=== PATIENT | female | born 1930 | race Caucasian/White ===

== ENCOUNTER → 2016-03-09 | Outpatient (REF) | payer OTHER ==
[~2016-03-09] MED LIST: /PRAV20TA; ALBU83IN INH; ASPI81TA85 PO; AYR0.65D; B COTAB3 PO; CINA30TA PO; COLA100C PO; COMP1PAK PO; FOLI1TAB2 PO; GUAI100S7 PO; LEVO100T5 PO; LEVO50TA2; LOPR50TA; NITR0.4S; OYSCTAB PO; REGL5TAB2 PO; RENV2TAB PO; SIMV20TA2 PO; TRAM50TA2 PO; VITA200016 PO
== END ==
LOC: M LAB REF 16:44
PROVIDERS: ATTEND Internal Medicine Medical Oncology
DX: E83.119 Hemochromatosis, unspecified (principal)

== ENCOUNTER 2016-04-14 18:11 | Observation (INO) | payer OTHER ==
[2016-04-14] MEDS ORDERED: MORPHINE 2 MG/ML 1ML SYRINGE As Ordered ONE (18:56)
[2016-04-14] MEDS ORDERED: ONDANSETRON 4MG/2ML VIAL (J2405) As Ordered ONE (18:57)
[2016-04-14 19:21] LABS: BASO # 0.1 K/mm3 (0.0-0.2); BASO % 1.1 % (0.0-1.0); EOS # 0.1 K/mm3 (0.0-0.50); EOS % 2.1 % (0.0-3.0); LARGE UNSTAINED CELL # 0.1 K/mm3 (0.0-0.4); LARGE UNSTAINED CELL % 1.8 % (0.0-4.0); LYMPH # 1.6 K/mm3 (1.5-4.5); LYMPH % 27.8 % (24.0-44.0); MEAN CORPUSCULAR HEMOGLOBIN 31.7 pg (27.0-33.0); MEAN CORPUSCULAR HGB CONC 33.9 g/dl (32.0-36.5); MEAN CORPUSCULAR VOLUME 93.5 fl (80.0-96.0); MONO # 0.5 K/mm3 (0.0-0.8); MONO % 9.3 % (0.0-5.0); NEUTROPHILS # 3.2 K/mm3 (1.8-7.7); PLATELET COUNT, AUTOMATED 240 k/mm3 (150-450); RED CELL DISTRIBUTION WIDTH 12.7 % (11.5-14.5); WHITE BLOOD COUNT 5.6 K/mm3 (4.0-10.0)
[2016-04-14 19:50] LABS: ALBUMIN/GLOBULIN RATIO 1.33 (1.00-1.93); ALKALINE PHOSPHATASE 106 U/L (45-117); ALT/SGPT 22 U/L (12-78); AMYLASE 44 U/L (25-115); ANION GAP 10 MEQ/L (8-16); AST/SGOT 19 U/L (15-37); BILIRUBIN,DIRECT 0.1 MG/DL (0.0-0.2); BILIRUBIN,TOTAL 0.5 MG/DL (0.2-1.0); BLOOD UREA NITROGEN 19 MG/DL (7-18); CALCIUM LEVEL 9.3 MG/DL (8.8-10.2); CARBON DIOXIDE LEVEL 24 MEQ/L (21-32); CHLORIDE LEVEL 109 MEQ/L (98-107); CREATININE FOR GFR 0.87 MG/DL (0.55-1.02); GLOMERULAR FILTRATION RATE > 60.0 (>32); GLUCOSE, FASTING 94 MG/DL (83-110); POTASSIUM SERUM 4.1 MEQ/L (3.5-5.1); SODIUM LEVEL 143 MEQ/L (136-145)
[2016-04-14] MEDS ORDERED: ISOVUE-370 76% 100ML VIAL (Q9967) As Ordered ONE (20:46)
--- NOTE | 2016-04-14 21:20 | REPUSA ---
CT of the abdomen and pelvis with contrast Clinical statement: Pain. Technique: Multiple axial CT images were obtained from the base of the lungs through the floor of the pelvis utilizing 5 mm axial slices after administration of nonionic intravenous contrast. Coronal an d sagittal reconstructions were also obtained. No comparison is available. Findings: Chest: The visualized lung bases are clear. There is a small hiatal hernia. Abdomen: The liver, pancreas, kidneys, gallbladder, and adrenal glands are unremarkable. The common b ile duct is dilated measuring up to 9 mm. The pancreatic duct is also dilated. No obstructing lesion or mass is identified however. There is a solid enhancing mass in the anterior aspect of the spleen, measuring 4.4 x 4.8 cm. The aorta is within normal limits, other than mild atherosclerotic calcificat ions. There is no evidence of abdominal lymphadenopathy or ascites. Pelvis: The bowel is unremarkable, with no obstructive or inflammatory changes. The urinary bladder i s within normal limits. The other pelvic structures appear grossly intact. There is no evidence of pe lvic lymphadenopathy or ascites. Bones: There are no suspicious osseous abnormalities seen. Severe multilevel degenerative disc diseas e is noted throughout the lumbar spine with disc osteophyte complexes and disc bulges. No acute fract ures identified. Mild osteoarthritis of the hip joints is noted. Impression: 1. Significant extrahepatic biliary ductal dilatation of the common bile duct and pancreatic duct. No distal obstructing stone or mass is identified on this study. If there is further clinical concern, MRCP or ERCP could prove helpful. 2. No obstructive or inflammatory bowel changes. 3. Small hiatal hernia. 4. 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 Follow-up is suggested as clinically indicated. 5. Severe spondylosis of the lumbar spine.
[2016-04-14] MEDS ORDERED: ACETAMINOPHEN TAB 650MG DOSE (2X325MG) PO PRN (23:00)
[2016-04-14] MEDS ORDERED: MORPHINE 2 MG/ML 1ML SYRINGE IV PRN (23:00)
[2016-04-14] MEDS ORDERED: PERCOCET 5MG/325MG TAB PO PRN (23:00)
[2016-04-14] MEDS ORDERED: VITA1CAP6 PO (23:04)
[2016-04-14] MEDS ORDERED: FISH1000 PO (23:04)
[2016-04-14] MEDS ORDERED: LISI10TA4 PO (23:04)
[2016-04-14] MEDS ORDERED: ATOR1TAB21 PO (23:04)
[2016-04-14] MEDS ORDERED: DOCUSATE SODIUM 100 MG CAP PO PRN (23:15)
--- NOTE | 2016-04-15 00:01 | HPEPDOC ---
Medical History and Physical Date of Admission Apr 14, 2016 at 22:06 History and Physical PRIMARY CARE PROVIDER: Dr. Florence CHIEF COMPLAINT: Ribs/right upper quadrant pain HISTORY OF PRESENT ILLNESS: Patient is a 85-year-old female with past medical history significant for hypertension, heart attack, hemachromatosis who presents with right-sided rib pain and right upper quadrant pain. Patient says that her pain started last night. Pain is located in her right posterior ribs with radiation to her right upper quadrant, she is also getting pain radiating down her right leg when walking. Patient rates pain 0 out of 10 when she is at rest and not moving and 10 out of 10 at its worst, staying that it "hurts like almighty God." Pain is elicited by any sort of movement, deep breathing or coughing. She denies any nausea, vomiting, fevers, chills, and sweats or weight changes ALLERGIES: None PAST MEDICAL HISTORY: Hypertension, myocardial infarction in 2011, 2012, 2013, hemochromatosis, subdural hematoma in 2012 PAST SURGICAL HISTORY: Hysterectomy, bilateral carpal tunnel repair, back surgery, coronary stent SOCIAL HISTORY: Patient denies any tobacco, alcohol or recreational drug use. Patient lives alone CODE STATUS: Patient does not currently have any advanced directives but is asking to be made DNR REVIEW OF SYSTEMS: Constitutional: denies fevers, chills, night sweats, recent weight gain/loss HEENT: Head: denies headaches, dizziness, light-headedness. Eyes: Positive for chronic macular degeneration and right eye. Ears: Positive for chronic hearing loss. Nose: denies sinus pain, pressure, rhinorrhea, postnasal drip. Throat: denies sore throat, cough, difficulty swallowing Cardiovascular: denies chest discomfort/pain, palpitations Respiratory: Positive for pain with deep breathing, denies shortness of breath, difficulty breathing Gastrointestinal: Positive for abdominal a as described in HPI, positive for GERD, chronic constipation. Denies any nausea, vomiting, bright red or dark tarry bowel movements : Positive for chronic urinary incontinence, denies dysuria, hematuria Musculoskeletal: Positive for diffuse musculoskeletal pain secondary to arthritis Neurological: denies numbness, tingling, paresthesias Lymphatics: denies palpable lymph nodes or swollen glands Integumentary: denies any cuts, rashes, bruises Endocrine: Positive for polyuria, polydipsia PHYSICAL EXAMINATION: Vitals: Temperature 97.9, pulse 87, respiratory rate 18, blood pressure 174/79, pulse ox 97% on room air General: Patient awake, alert and oriented, verbal and able to answer questions appropriately. She does not appear to be in any acute distress HEENT: Head: normocephalic, atraumatic. Eyes: pupils equally reactive to light , conjunctiva are pink, sclera are nonicteric. Throat: buccal mucosa is pink and moist with no lesions in the oropharynx Respiratory: clear to auscultation bilaterally with no wheezes, rales, or rhonchi. Cardiovascular: regular rate and rhythm, with no murmurs, rubs or gallops. Abdomen: Active bowel sounds, soft, positive for tenderness in right upper quadrant, right mid lateral abdomen with no rebound tenderness. No masses to palpation Extremities: 5/5 strength in upper and lower extremities bilaterally, no swelling in either lower extremity bilaterally Neurological: sensation intact and symmetrical in upper and lower extremities bilaterally Lymphatics: no palpable lymph nodes, swollen glands Integumentary: skin free from rashes, lesions, abrasions Vascular: pulses palpable and symmetrical in upper and lower extremities bilaterally LABORATORY DATA: CBC: White blood cells 5.6, H&H 15.6/46.1, platelets 240 Chemistry: Sodium 143, potassium 4.1, chloride 109, carbon dioxide 24, BUN 19, creatinine 0.87, glucose 94, calcium 9.3 Liver profile: AST 19, ALT 22, alkaline phosphatase 106, total protein 7.0, albumin 4.0, total bilirubin 0.5, direct bilirubin 0.1 Amylase 44, lipase 262 Urine analysis: Straw color, appearance clear, pH 6.0, specific gravity 1.004, 0.2 urobilinogen, 4 white blood cells, 3 red blood cells. Negative for all of the following: Protein, glucose, ketones, blood, nitrites, bilirubin, leukocyte esterase, hyalin casts, squamous epithelial cells MICROBOIOLOGY: Urine culture pending RADIOLOGY: Extrahepatic biliary ductal dilation of common bile duct and pancreatic duct. No obstructing stone or mass identified. No obstructive or inflammatory bowel changes. Small hiatal hernia. Small enhancing mass in anterior aspect of spleen. Severe spondylosis of lumbar spine ASSESSMENT: Patient is a 85-year-old female who presents with likely biliary colic. She will require admission for further evaluation and treatment PLAN: #1: Biliary colic: Admit patient to [facility] under care of Dr. Grijalva. Patient will be further evaluated with MRCP, order placed for nothing by mouth after midnight. Orders placed for daily CBC, CMP. Orders placed for Tylenol 650 mg by mouth every 4 hours when necessary for pain or fever, morphine sulfate 2 mg IV every 4 hours when necessary, oxycodone with acetaminophen 5/325 mg one tablet by mouth every 4 hours when necessary, normal saline at rate of 90 mL/hr #2: Hypertension: Order placed for home dose of lisinopril 10 mg by mouth daily #3: Hyperlipidemia: Order placed for home dose of Lipitor 20 mg by mouth daily #4: History of coronary stents: Order placed for home dose of aspirin 81 mg by mouth daily #5: DVT prophylaxis: Order placed for heparin 5000 units subcutaneously every 8 hours My preceptor for this patient encounter was physically present in the building during the encounter and was fully available. As needed, all aspects of the patient interview, examination, medical decision making process, and medical care plan development were reviewed and approved by the preceptor. Preceptor is aware and concurs with the plan as stated in the body of this note and will attest to such by his/her cosignature. Attending Note: I have independently examined this patient and all aspects of the exam and treatment decisions have been discussed with the resident. A member of the hospitalist staff will continue to follow this patient through discharge. Vital Signs Temperature 97.9, pulse 87, respiratory rate 18, blood pressure 174/79, pulse ox 97% on room air Home Medications Scheduled (Vitamin C & D3/Adalgisa... 500-1000-20 mg-Unit-mg) 1 Cap Cap 1 CAP PO DAILY Aspirin (Aspir-81) 81 Mg Tab 81 MG PO DAILY Atorvastatin Calcium (Atorvastatin Calcium) 20 Mg Tab 20 MG PO DAILY Fish Oil (Fish Oil) 1,000 Mg Cap 1,000 MG PO DAILY Lisinopril (Lisinopril) 10 Mg Tab 10 MG PO DAILY Scheduled PRN Docusate Sodium (Colace) 100 Mg Cap 100 MG PO DAILY PRN PRN BOWEL CARE/ CONSTIPATION Allergies Coded Allergies: No Known Allergies (Verified Allergy, Unknown, 03/06/08) SURESH COLE DO Apr 15, 2016 00:01 JAS FELIX DO Apr 15, 2016 05:12
--- NOTE | 2016-04-15 00:11 | EDDOCDS ---
Nurse's Notes [facility] Name: Gricelda Lange Age: 85 yrs Sex: Female : 1930 Arrival Date: 04/14/2016 Time: 18:11 Bed I5 / M5 Private MD: Diagnosis: Abnormal findings on diagnostic imaging of liver and biliary tract Presentation: 04/14 18:15 Presenting complaint: Patient states: Right lower back pain radiating to RLQ and right rs3 leg, worse with movement. Acute neurological deficits are not present. Mechanism of Injury: No Mechanism of Injury. Adult Sepsis Screening: The patient does not have new or worsening altered mentation. Patient's respiratory rate is less than 22. Systolic blood pressure is greater than 100. Patient has a qSOFA score of 0- Negative Sepsis Screen. Suicide/Homicide risk assessment- the patient denies having any suicidal and/or homicidal ideations and does not present with any other emotional, behavioral or mental health complaints. Status: Patient is not a human services supervisor or dependent. Transition of care: patient was not received from another setting of care. 18:15 Acuity: NASIM Level 3 rs3 18:15 Method Of Arrival: Wheelchair rs3 Triage Assessment: 18:18 General: Appears in no apparent distress. Pain: Location: posterior aspect of right rs3 lateral abdomen and anterior aspect of right lateral abdomen. Musculoskeletal: Reports Pain is 7 out of 10 on a pain scale. Historical: - Allergies: no known allergies; - Home Meds: 1. atorvastatin oral oral 1 tab once daily 2. lisinopril 30 mg Oral tab 1 tab once daily 3. Fish Oil 183.3 mg-75 mg -91.6 mg-306 mg Oral cap daily 4. Vitamin C 500 mg Oral cpER daily - PMHx: Hypertension; [place]; Hemochromatosis; - PSHx: Hysterectomy; Carpal Tunnel Repair- Bilateral; - Social history: Smoking status: Patient states former smoker of tobacco. No barriers to communication noted, The patient speaks fluent [place]e. - Family history: Not pertinent. - : The pt / caregiver states he / she is not on anticoagulants. Home medication list is obtained from the patient. - Exposure Risk Screening:: None identified. Screenin/17 00:07 Screening information is obtained from the patient, family members. Fall risk: At risk ld5 due to pain. Assistance ADL's: Requires assistance with housework, assistance is provided by family members. Abuse/DV Screen: The patient / caregiver reports he/she is: not in a situation that causes fear, pain or injury. Nutritional screening: No deficits noted. Advance Directives: There is an active DNR order and the pt has a copy here at this time. home support is adequate. Assessment: 04/14 19:00 General: Appears in no apparent distress, Behavior is appropriate for age, cooperative. kr3 Pain: Location: anterior aspect of right lateral abdomen and posterior aspect of right lateral abdomen Pain currently is 0 out of 10 on a pain scale. At worst was 10 out of 10 on a pain scale. Aggravated by increased activity, repositioning, weight bearing. Neurological: Level of Consciousness is awake, alert. Respiratory: Respiratory effort is even, unlabored. GI: Denies nausea, vomiting. : Denies burning with urination, urinary frequency, urgency. Derm: Skin is normal. 19:58 General: Pt laying quietly in bed. Reports no pain until she moves her right leg. No ld5 apparent distress. Family at bedside. Will continue to monitor. 21:05 General: Appears in no apparent distress, comfortable, Behavior is cooperative. Pain: lf1 Location: anterior aspect of right lateral abdomen and posterior aspect of right lateral abdomen. Neurological: Level of Consciousness is awake, alert. EENT: No deficits noted. Respiratory: Respiratory effort is even, unlabored. GI: Denies nausea, vomiting. Derm: Skin is fragile, is thin. 21:13 Adult Sepsis Screening: The patient does not have new or worsening altered mentation. lf1 Patient's respiratory rate is less than 22. Systolic blood pressure is greater than 100. Patient has a qSOFA score of 0- Negative Sepsis Screen. General: Appears in no apparent distress, Behavior is cooperative. Pain: Denies pain. Noted to be Pt denies pain, however states "I have a lot of discomfort all over". Points to right lower quadrant and grimaces with movement and palpation. Neurological: Level of Consciousness is awake, alert. EENT: No deficits noted. Respiratory: Respiratory effort is even, unlabored. GI: Abd is tender to palpation in right lower quadrant. 22:30 General: Pt laying quietly in bed. No apparent distress. Awaiting consulting MDs. Call ld5 quevedo within reach. Will continue to monitor. 23:29 General: Pt resting comfortably in bed. No apparent distress. Dr. Macias in to assess ld5 pt. Family remains at bedside. Will continue to monitor. Vital Signs: 18:14 BP 196 / 71; Pulse 86; Resp 16; Temp 97.5(O); Pulse Ox 98% on R/A; Weight 56.7 kg (R); lr2 Pain 9/10; 18:32 BP 160 / 82 LA Sitting (man/lg); jb5 19:58 BP 164 / 84 (man/); Pulse 80; Resp 16; Pulse Ox 98% on R/A; Pain 0/10; ld5 21:13 BP 174 / 79; Pulse 87; Resp 18; Temp 97.9(O); Pulse Ox 97% on R/A; lf1 04/15 00:07 BP 158 / 78 RA (man/); Pulse 85; Resp 16; Temp 98.1; Pulse Ox 95% on R/A; ld5 Vitals: 04/14 18:14 Log In Time: April 14, 2016 at 18:11. lr2 ED Course: 18:13 Patient visited by Madelaine Zabala. lr2 18:13 Patient moved to Waiting lr2 18:14 Patient moved to Pre RCE lr2 18:17 Triage Initiated rs3 18:20 Patient moved to Triage 2 ck1 18:32 Patient visited by Marlin Parada PCA. jb5 18:32 Patient visited by Marlin Parada PCA. jb5 18:41 [facility] ck7 18:41 Humberto Vance MD is Attending Physician. ck7 18:41 Patient visited by Fabio Rodríguez RPA-C. ck7 18:47 Patient moved to I5 / M5 jo3 18:59 Amylase Sent. kr3 18:59 Basic Metabolic Profile Sent. kr3 18:59 CBC with Diff Sent. kr3 18:59 Lipase Sent. kr3 18:59 Liver Profile Sent. kr3 19:00 The patient / caregiver is instructed regarding the plan of care and ED course. kr3 Accompanied by Friend, Patient has correct armband on for positive identification. Placed in gown. Bed in low position. Call light in reach. Side rails up X 1. 19:00 Inserted saline lock: 20 gauge in left antecubital area and blood collected. The kr3 patient tolerated the procedure well. 19:12 Patient visited by Fabio Rodríguez RPA-C. ck7 19:52 Patient visited by Fabio Rodríguez RPA-C. ck7 19:59 Patient visited by Madelaine Stephenson RN. ld5 20:36 Patient visited by Fabio Rodríguez RPA-C. ck7 21:11 Patient visited by Fabio Rodríguez RPA-C. ck7 21:46 Patient visited by Fabio Rodríguez RPA-C. ck7 21:46 CT ABD & PELVIS: IV Contrast Only Returned. EDMS 22:07 [facility] Payment Agreement was scanned into [employer] and attached to record. ks16 23:09 Patient visited by Madelaine Stephenson RN. ld5 23:21 Harley Macias DO is Hospitalizing Provider. ck7 23:29 No procedures done that require assistance. ld5 23:30 Patient visited by Madelaine Stephenson RN. ld5 04/15 00:10 Patient visited by Madelaine Stephenson,BARAK. ld5 Administered Medications: 04/14 19:07 Drug: NS 0.9% 500 ml [sodium chloride 0.9 % intravenous solution] Route: IV; Rate: mk4 bolus; Site: left antecubital; 20:24 Follow up: IV Status: Completed infusion; IV Intake: 500ml ld5 19:07 Drug: morphine 2 mg [morphine 2 mg/mL intravenous cartridge (1 mL)] Route: IVP; Site: [facility] left antecubital; 19:58 Follow up: BP 164 / 84 Right Arm Manual; Pulse 80 bpm; Resp 16 bpm; Pulse Ox 98% RA; ld5 Pain 0/10 Adult; Response: Confirmed pt not driving.; Pain is decreased 19:07 Drug: Ondansetron 4 mg Route: IVP; Site: left antecubital; mk4 19:58 Follow up: Response: Nausea is decreased ld5 Intake: 20:24 IV: 500.00ml; Total: 500.00ml. ld5 Order Results: Lab Order: Amylase; SPEC'M 04/14/16 18:56 Test: AMYLASE; Value: 44; Range: 25-115; Units: U/L; Status: F Lab Order: Basic Metabolic Profile; SPEC'M 04/14/16 18:56 Test: GLUCOSE, FASTING; Value: 94; Range: 83-110; Units: MG/DL; Status: F Test: BLOOD UREA NITROGEN; Value: 19; Range: 7-18; Abnormal: Above high normal; Units: MG/DL; Status: F Test: CREATININE FOR GFR; Value: 0.87; Range: 0.55-1.02; Units: MG/DL; Status: F Test: GLOMERULAR FILTRATION RATE; Value: > 60.0; Range: >32; Status: F Test: SODIUM LEVEL; Value: 143; Range: 136-145; Units: MEQ/L; Status: F Test: POTASSIUM SERUM; Value: 4.1; Range: 3.5-5.1; Units: MEQ/L; Status: F Test: CHLORIDE LEVEL; Value: 109; Range: 98-107; Abnormal: Above high normal; Units: MEQ/L; Status: F Test: CARBON DIOXIDE LEVEL; Value: 24; Range: 21-32; Units: MEQ/L; Status: F Test: ANION GAP; Value: 10; Range: 8-16; Units: MEQ/L; Status: F Test: CALCIUM LEVEL; Value: 9.3; Range: 8.8-10.2; Units: MG/DL; Status: F Test Note: ; Units are mL/min/1.73 m2 Chronic Kidney Disease Staging per NKF: Stage I & II GFR >=60 Normal to Mildly Decreased Stage III GFR 30-59 Moderately Decreased Stage IV GFR 15-29 Severely Decreased Stage V GFR <15 Very Little GFR Left ESRD GFR <15 on [facility]LA[facility] OR [employer] Lab Order: CBC with Diff; SPEC'M 04/14/16 18:56 Test: WHITE BLOOD COUNT; Value: 5.6; Range: 4.0-10.0; Units: K/mm3; Status: F Test: RED BLOOD COUNT; Value: 4.94; Range: 4.00-5.40; Units: M/mm3; Status: F Test: HEMOGLOBIN; Value: 15.6; Range: 12.0-16.0; Units: g/dl; Status: F Test: HEMATOCRIT; Value: 46.1; Range: 36.0-47.0; Units: %; Status: F Test: MEAN CORPUSCULAR VOLUME; Value: 93.5; Range: 80.0-96.0; Units: fl; Status: F Test: MEAN CORPUSCULAR HEMOGLOBIN; Value: 31.7; Range: 27.0-33.0; Units: pg; Status: F Test: MEAN CORPUSCULAR HGB CONC; Value: 33.9; Range: 32.0-36.5; Units: g/dl; Status: F Test: RED CELL DISTRIBUTION WIDTH; Value: 12.7; Range: 11.5-14.5; Units: %; Status: F Test: PLATELET COUNT, AUTOMATED; Value: 240; Range: 150-450; Units: k/mm3; Status: F Test: NEUTROPHILS %; Value: 58.0; Range: 36.0-66.0; Units: %; Status: F Test: LYMPH %; Value: 27.8; Range: 24.0-44.0; Units: %; Status: F Test: MONO %; Value: 9.3; Range: 0.0-5.0; Abnormal: Above high normal; Units: %; Status: F Test: EOS %; Value: 2.1; Range: 0.0-3.0; Units: %; Status: F Test: BASO %; Value: 1.1; Range: 0.0-1.0; Abnormal: Above high normal; Units: %; Status: F Test: LARGE UNSTAINED CELL %; Value: 1.8; Range: 0.0-4.0; Units: %; Status: F Test: NEUTROPHILS #; Value: 3.2; Range: 1.8-7.7; Units: K/mm3; Status: F Test: LYMPH #; Value: 1.6; Range: 1.5-4.5; Units: K/mm3; Status: F Test: MONO #; Value: 0.5; Range: 0.0-0.8; Units: K/mm3; Status: F Test: EOS #; Value: 0.1; Range: 0.0-0.50; Units: K/mm3; Status: F Test: BASO #; Value: 0.1; Range: 0.0-0.2; Units: K/mm3; Status: F Test: LARGE UNSTAINED CELL #; Value: 0.1; Range: 0.0-0.4; Units: K/mm3; Status: F Lab Order: Lipase; [facility] 04/14/16 18:56 Test: LIPASE; Value: 262; Range: 73-393; Units: U/L; Status: F Lab Order: Liver Profile; [facility] 04/14/16 18:56 Test: AST/SGOT; Value: 19; Range: 15-37; Units: U/L; Status: F Test: ALT/SGPT; Value: 22; Range: 12-78; Units: U/L; Status: F Test: ALKALINE PHOSPHATASE; Value: 106; Range: 45-117; Units: U/L; Status: F Test: BILIRUBIN,TOTAL; Value: 0.5; Range: 0.2-1.0; Units: MG/DL; Status: F Test: BILIRUBIN,DIRECT; Value: 0.1; Range: 0.0-0.2; Units: MG/DL; Status: F Test: TOTAL PROTEIN; Value: 7.0; Range: 6.4-8.2; Units: GM/DL; Status: F Test: ALBUMIN; Value: 4.0; Range: 3.2-5.2; Units: GM/DL; Status: F Test: ALBUMIN/GLOBULIN RATIO; Value: 1.33; Range: 1.00-1.93; Status: F Lab Order: Urinalysis; [facility] 04/14/16 19:46 Test: APPEARANCE, URINE; Value: CLEAR; Range: CLEAR; Status: F Test: COLOR, URINE; Value: STRAW; Range: YELLOW; Status: F Test: PH,URINE; Value: 6.0; Range: 5.0-9.0; Units: UNITS; Status: F Test: SPECIFIC GRAVITY URINE AUTO; Value: 1.004; Range: 1.002-1.035; Status: F Test: PROTEIN, URINE AUTO; Value: NEGATIVE; Range: NEGATIVE; Units: mg/dL; Status: F Test: GLUCOSE, URINE (UA) AUTO; Value: NEGATIVE; Range: NEGATIVE; Units: mg/dL; Status: F Test: KETONE, URINE AUTO; Value: NEGATIVE; Range: NEGATIVE; Units: mg/dL; Status: F Test: UROBILINOGEN, URINE AUTO; Value: 0.2; Range: 0.0-2.0; Units: mg/dL; Status: F Test: BILIRUBIN, URINE AUTO; Value: NEGATIVE; Range: NEGATIVE; Status: F Test: NITRITE, URINE AUTO; Value: NEGATIVE; Range: NEGATIVE; Status: F Test: LEUKOCYTE ESTERASE, URINE AUTO; Value: NEGATIVE; Range: NEGATIVE; Status: F Test: BLOOD, URINE BLOOD; Value: NEGATIVE; Range: NEGATIVE; Status: F Test: WBC, URINE AUTO; Value: 4; Range: 0-3; Abnormal: Above high normal; Units: /HPF; Status: F Test: RBC, URINE AUTO; Value: 3; Range: 0-3; Units: /HPF; Status: F Test: BACTERIA, URINE AUTO; Value: NEGATIVE; Range: NEGATIVE; Status: F Test: SQUAMOUS EPITHELIAL CELL UR AU; Value: 0; Range: 0-6; Units: /HPF; Status: F Test: HYALINE CAST, URINE AUTO; Value: 0; Range: 0-1; Units: /LPF; Status: F Radiology Order: CT ABD & PELVIS: IV Contrast Only Test: CT ABD & PELVIS: IV Contrast Only REASON FOR EXAMINATION: Abdomen Pain; ; CT of the abdomen and pelvis with contrast; Clinical statement: Pain.; Technique: Multiple axial CT images were obtained from the base of the lungs through the floor of the; pelvis utilizing 5 mm axial slices after administration of nonionic intravenous contrast. Coronal an; d sagittal reconstructions were also obtained.; No comparison is available.; Findings:; Chest: The visualized lung bases are clear. There is a small hiatal hernia.; Abdomen: The liver, pancreas, kidneys, gallbladder, and adrenal glands are unremarkable. The common b; ile duct is dilated measuring up to 9 mm. The pancreatic duct is also dilated. No obstructing lesion; or mass is identified however. There is a solid enhancing mass in the anterior aspect of the spleen,; measuring 4.4 x 4.8 cm. The aorta is within normal limits, other than mild atherosclerotic calcificat; ions. There is no evidence of abdominal lymphadenopathy or ascites.; Pelvis: The bowel is unremarkable, with no obstructive or inflammatory changes. The urinary bladder i; s within normal limits. The other pelvic structures appear grossly intact. There is no evidence of pe; lvic lymphadenopathy or ascites.; Bones: There are no suspicious osseous abnormalities seen. Severe multilevel degenerative disc diseas; e is noted throughout the lumbar spine with disc osteophyte complexes and disc bulges. No acute fract; ures identified. Mild osteoarthritis of the hip joints is noted.; Impression:; 1. Significant extrahepatic biliary ductal dilatation of the common bile duct and pancreatic duct. No; distal obstructing stone or mass is identified on this study. If there is further clinical concern,; MRCP or ERCP could prove helpful.; 2. No obstructive or inflammatory bowel changes.; 3. Small hiatal hernia.; 4. 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 Severe spondylosis of the lumbar spine.; ; Outcome: 23:21 Decision to Hospitalize by Provider. ck7 23:29 CT Study completed. ld5 04/15 00:09 Discharge Assessment: Patient awake, alert and oriented x 3. No cognitive and/or ld5 functional deficits noted. Patient verbalized understanding of disposition instructions. patient administered narcotics - yes. Patient was admitted to the hospital or transferred to another facility. The following High Risk Discharge criteria are identified: None. Admitted to Med/Surg accompanied by tech, family with patient, via stretcher, with chart. Condition: stable. Property :Personal belongings accompany Pt. 00:10 Patient left the ED. ld5 Signatures: Dispatcher [employer] EDMS Deborah LesterRN RN ck1 Sara Solano,RN RN kr3 Marlin Parada, YARN WASHER YARN WASHER jb5 Emelina QuirosRN RN brenda3 Carolyn HahnRN RN lf1 Nilda NewmanRN BARAK gan3 Madelaine Stephenson,RN RN ld5 Fabio Rodríguez, RPA-C RPA-Cck7 Laurie Gallardo, RN RN Rosmery Valdez, Reg Reg ks16 Madelaine Zabala lr2 Corrections: (The following items were deleted from the chart) 04/14 21:16 21:06 IV Status: Completed infusion; IV Intake: 500ml lf1 lf1 MTDD
--- NOTE | 2016-04-15 00:11 | EDDOCDS ---
Physician Documentation [facility] Name: Gricelda Lange Age: 85 yrs Sex: Female : 1930 Arrival Date: 04/14/2016 Time: 18:11 Bed I5 / M5 Private MD: Disposition: 04/14/16 23:21 Hospitalization ordered by Harley Macias for Inpatient Admission. Preliminary diagnosis is Abnormal findings on diagnostic imaging of liver and biliary tract. - Bed requested for [facility]. - Status is Inpatient Admission. ld5 - Condition is Stable. - Problem is new. - Symptoms are unchanged. Historical: - Allergies: no known allergies; - Home Meds: 1. atorvastatin oral oral 1 tab once daily 2. lisinopril 30 mg Oral tab 1 tab once daily 3. Fish Oil 183.3 mg-75 mg -91.6 mg-306 mg Oral cap daily 4. Vitamin C 500 mg Oral cpER daily - PMHx: Hypertension; [place]; Hemochromatosis; - PSHx: Hysterectomy; Carpal Tunnel Repair- Bilateral; - Social history: Smoking status: Patient states former smoker of tobacco. No barriers to communication noted, The patient speaks fluent [place]. - Family history: Not pertinent. - : The pt / caregiver states he / she is not on anticoagulants. Home medication list is obtained from the patient. - Exposure Risk Screening:: None identified. Vital Signs: 04/14 18:14 BP 196 / 71; Pulse 86; Resp 16; Temp 97.5(O); Pulse Ox 98% on R/A; Weight 56.7 kg / 125 lr2 lbs (R); Pain 9/10; 18:32 BP 160 / 82 LA Sitting (man/lg); jb5 19:58 BP 164 / 84 (man/); Pulse 80; Resp 16; Pulse Ox 98% on R/A; Pain 0/10; ld5 21:13 BP 174 / 79; Pulse 87; Resp 18; Temp 97.9(O); Pulse Ox 97% on R/A; lf1 04/15 00:07 BP 158 / 78 RA (man/); Pulse 85; Resp 16; Temp 98.1; Pulse Ox 95% on R/A; ld5 MDM: 04/14 18:28 Recheck B/P ordered. ck7 18:47 Undress patient appropriately for examination ordered. ck7 18:47 IV Saline Lock ordered. ck7 18:47 NS 0.9% 500 ml IV at bolus once ordered. ck7 18:47 morphine 2 mg IVP once ordered. ck7 18:47 Ondansetron 4 mg IVP once ordered. ck7 18:48 Amylase Ordered. EDMS 18:48 Basic Metabolic Profile Ordered. EDMS 18:48 CBC with Diff Ordered. EDMS 18:48 Lipase Ordered. EDMS 18:48 Liver Profile Ordered. EDMS 18:48 Urinalysis Ordered. EDMS 18:48 Urine Culture Ordered. EDMS 18:48 NOTHING BY MOUTH+DIET ordered. EDMS 19:34 CBC with Diff Reviewed. ck7 20:11 Basic Metabolic Profile Reviewed. ck7 20:11 Urinalysis Reviewed. ck7 20:11 Amylase Reviewed. ck7 20:11 Lipase Reviewed. ck7 20:11 Liver Profile Reviewed. ck7 20:22 CT ABD & PELVIS: IV Contrast Only Ordered. EDMS 21:46 CT ABD & PELVIS: IV Contrast Only Reviewed. ck7 22:00 Financial registration complete. zo 22:07 [facility] Payment Agreement was scanned into [employer] and attached to record. ks16 22:08 Admission / Observation Status ordered. EDMS 23:15 COMPLETE BLOOD COUNT Ordered. EDMS 23:16 MRI ABDOMEN WITHOUT CONTRAST Ordered. EDMS 23:21 BED REQUEST+ADM ordered. EDMS 23:24 NPO FOR TEST/PROCEDURE ordered. EDMS 04/15 00:00 COMPLETE COMPHRENSIVE METABOLI Ordered. EDMS Administered Medications: 04/14 19:07 Drug: NS 0.9% 500 ml [sodium chloride 0.9 % intravenous solution] Route: IV; Rate: mk4 bolus; Site: left antecubital; 20:24 Follow up: IV Status: Completed infusion; IV Intake: 500ml ld5 19:07 Drug: morphine 2 mg [morphine 2 mg/mL intravenous cartridge (1 mL)] Route: IVP; Site: mk4 left antecubital; 19:58 Follow up: BP 164 / 84 Right Arm Manual; Pulse 80 bpm; Resp 16 bpm; Pulse Ox 98% RA; ld5 Pain 0/10 Adult; Response: Confirmed pt not driving.; Pain is decreased 19:07 Drug: Ondansetron 4 mg Route: IVP; Site: left antecubital; mk4 19:58 Follow up: Response: Nausea is decreased ld5 Signatures: Dispatcher [employer] EDMS Naresh LOWE, Ankita RN RN Rocco Altamirano RosemaryRN RN rs3 Madelaine Stephenson RN RN ld5 Fabio Rodríguez, RPA-C RPA-Cck7 AsimRosmery peres, Reg Reg ks16 Laurie Gallardo RN mk4 The chart was reviewed and I authenticate all verbal orders and agree with the evaluation and treatment provided.Corrections: (The following items were deleted from the chart) 23:24 23:15 2 GRAM SODIUM DIET ordered. EDMS EDMS 04/15 00:02 02 23:16 BASIC METABOLIC PROFILE ordered. EDMS EDMS Attachments: 22:07 [facility] Payment Agreement ks16 MTDD
[2016-04-15 00:15] VITALS: BP 148/95
[2016-04-15] MEDS: NS 1,000 ML IV SCH ×3 (01:16→21:00)
[2016-04-15] MEDS: HEPARIN SOD (PORCINE) 5000 UNITS/ML VIAL SC SCH ×4 (05:20→21:04)
[2016-04-15 06:00] VITALS: BP 120/56
[2016-04-15 06:17] LABS: MEAN CORPUSCULAR HEMOGLOBIN 32.2 pg (27.0-33.0); MEAN CORPUSCULAR HGB CONC 34.1 g/dl (32.0-36.5); MEAN CORPUSCULAR VOLUME 94.4 fl (80.0-96.0); RED CELL DISTRIBUTION WIDTH 12.7 % (11.5-14.5); WHITE BLOOD COUNT 4.9 K/mm3 (4.0-10.0)
[2016-04-15 06:38] LABS: ALBUMIN 3.3 GM/DL (3.2-5.2); ALBUMIN/GLOBULIN RATIO 1.18 (1.00-1.93); ALKALINE PHOSPHATASE 91 U/L (45-117); ALT/SGPT 18 U/L (12-78); ANION GAP 9 MEQ/L (8-16); AST/SGOT 16 U/L (15-37); BILIRUBIN,TOTAL 0.5 MG/DL (0.2-1.0); BLOOD UREA NITROGEN 15 MG/DL (7-18); CALCIUM LEVEL 8.6 MG/DL (8.8-10.2); CARBON DIOXIDE LEVEL 26 MEQ/L (21-32); CHLORIDE LEVEL 111 MEQ/L (98-107); CREATININE FOR GFR 0.87 MG/DL (0.55-1.02); GLOMERULAR FILTRATION RATE > 60.0 (>32); GLUCOSE, FASTING 93 MG/DL (83-110); POTASSIUM SERUM 3.9 MEQ/L (3.5-5.1); SODIUM LEVEL 146 MEQ/L (136-145); TOTAL PROTEIN 6.1 GM/DL (6.4-8.2)
[2016-04-15] MEDS: ATORVASTATIN 20 MG TAB PO SCH (08:45)
[2016-04-15] MEDS: OMEGA-3 1050MG CAPSULE PO SCH (08:46)
[2016-04-15] MEDS: ASPIRIN 81 MG ENTERIC TAB PO SCH (08:46)
[2016-04-15] MEDS: LISINOPRIL 10 MG TAB PO SCH (08:46)
--- NOTE | 2016-04-15 13:37 | REP ---
MRCP: MRCP exam is accomplished utilizing multiple heavily T2-weighted sequences in the axial and coronal plane with MIP reconstruction images. There is currently no significant intrahepatic biliary dilatation. No filling defects are seen in the gallbladder. Common bile duct is normal in caliber. However, there is diffuse dilatation of the pancreatic duct. Maximum diameter is 6 mm in the region of the pancreatic head. Diameter tapers as it courses distally in the pancreatic tail. No definite obstructing lesion is seen at the distal aspect of the pancreatic duct as it empties into the duodenum. No filling defect is seen. No definite strictures are seen of the common bile duct or pancreatic duct. Incidental note is made of the anteriorly located splenic mass seen on the CT scan of 04/14/2016. No other significant upper abdominal abnormality is seen. IMPRESSION: Currently common bile duct and intrahepatic ducts are not significantly dilated. There is, however, diffuse dilatation of the pancreatic duct up to 6 mm. No obstructing mass, stricture or stone is seen. Signed by Manny Araya MD 04/15/2016 06:31 P
[2016-04-15 14:00] VITALS: BP 142/73
--- NOTE | 2016-04-15 16:23 | REP ---
Clinical: Acute right upper quadrant abdominal pain. Technique: Araya scale ultrasound using curved array transducer. Findings: The liver and pancreas are normal in contour, size, and echogenicity without focal hepatic or pancreatic lesions identified. The gallbladder is normal without gallstones, wall thickening or pericholecystic fluid. No intrahepatic biliary ductal dilatation is appreciated, and the common bile duct measures 7.9 mm diameter. The pancreatic duct is mildly prominent at approximately 4.5 mm diameter. The right kidney is normal in reniform shape without hydronephrosis and measures 10.0 x 3.3 x 5.1 cm. No ascites. Visualized portions of the abdominal aorta normal. Impression: Normal right upper quadrant and gallbladder abdominal ultrasound. Prominence to the common bile duct and pancreatic duct are likely age-related. Signed by Tex Desouza MD 04/15/2016 04:15 P
--- NOTE | 2016-04-15 20:11 | CR ---
DATE OF CONSULTATION: 04/15/2016 REQUESTING PHYSICIAN: Hospitalist service. REASON FOR CONSULTATION: Abnormal MRCP. HISTORY OF PRESENT ILLNESS: Ms. Gricelda Lange is an 85-year-old female who presents 2 days after heavy lifting of snow with her snow shovel at home and acute onset of right flank pain that radiates to her back. It is aggravated by motion; is alleviated by rest. The patient denies any abdominal pain. No nausea, no vomiting. She presents to the emergency room where she had an MRCP performed which was essentially normal in appearance with age related changes. Her pancreatic duct was thought to be somewhat plump. She had ultrasound right upper quadrant performed which was normal as well. Age-related changes were noted. PAST MEDICAL HISTORY: Myocardial infarction, hypertension. PAST SURGICAL HISTORY: Hysterectomy, coronary stenting. SOCIAL HISTORY: Negative for tobacco. Negative for alcohol. She lives alone and does her own chores including snow shoveling. PHYSICAL EXAMINATION: 97.7, pulse 87, respiratory rate 18, blood pressure 174/79, pulse oximetry 97% on room air. General: She is awake, alert and oriented x3 and in distress when moving in bed. She is nontoxic in appearance. Head, eyes, ears, nose and throat: Is without any abnormality. Neck is supple. No lymphadenopathy, thyromegaly. Chest is clear bilaterally to auscultation. No rhonchi or crackles. She is exquisitely tender to light touch in the right flank area and costal margin, which is quite reproducible to motion and to palpation. I do not see a rash. Abdomen is soft, nontender. Good bowel sounds. No masses palpable. Extremities: Negative for edema. Lab work and radiological studies including CT scan, ultrasound and MRI has been reviewed. IMPRESSION: 1. Right flank chest wall pain most likely related to costochondritis/musculoskeletal. 2. Age-related radiology changes of her pancreatic duct, bile duct, which are of no clinical significance and from my standpoint, the patient does not need any GI evaluations beyond this.
[2016-04-15 22:00] VITALS: BP 180/80
--- NOTE | 2016-04-15 23:40 | IPNPDOC ---
Subjective Date Seen The patient was seen on 04/15/16. Subjective Chief Complaint/HPI The patient is a 85-year-old female admitted with a reason for visit of Biliary Colic. Events since last encounter The patient was seen at bedside and reported no events overnight. Pt refused pain medications this AM and reports only feeling pain when she moves now. The pain is still located along her right flank, radiating to the RUQ and down the RLE. Pt describes pain as sharp and stabbing but it remits when she is lying still. Pt denies n/v/d, other abdominal pain, chest pain, dyspnea, or dysuria. Pt does have a history of urgency incontinence but states that it is chronic. General: Reports: Normal Appetite, Denies: Chills, Fatigue, Malaise, Night Sweats Eyes: Denies: Pain, Vision change ENT: Denies: Dysphagia, Head Aches Pulmonary: Denies: Cough, Dyspnea Cardiovascular: Denies: Chest Pain, Palpitations Gastrointestinal: Denies: Abdominal Pain, Constipation, Diarrhea, Nausea, Vomiting Genitourinary: Reports: Incontinence (chronic), Denies: Dysuria Musculoskeletal: Reports: Back Pain, Denies: Neck Pain Psych: Reports: Mood Normal Objective Physical Examination General Exam: Positive: Alert, Cooperative, No Acute Distress Eye Exam: Positive: Conjunctiva & lids normal, EOMI, PERRLA, Negative: Sclera icteric ENT Exam: Positive: Atraumatic, Mucous membr. moist/pink Neck Exam: Positive: Supple, thyromegaly Chest Exam: Positive: Clear to auscultation, Normal air movement Heart Exam: Positive: Normal S1, Normal S2, Rate Normal, Negative: Murmurs, Rubs Abdomen Exam: Positive: Normal bowel sounds, Soft, Tenderness Extremity Exam: Positive: Normal pulses, Negative: Clubbing, Cyanosis, Edema Skin Exam: Positive: Nl turgor and temperature Psych Exam: Positive: Mental status NL, Mood NL, Oriented x 3 Assessment /Plan Problems (1) RUQ abdominal pain Status: Acute Problem Text: Pt has pain along RUQ and R flank exacerbated by movement and palpation. Pt is currently afebrile and WBC is not elevated, liver enzymes and ALP are also not elevated. Severe biliary ductal dilatation was observed on CT last night. We will perform MRCP today and reevaluate. Plan to continue pt on pain medication PRN, continue to monitor liver enzymes, CBC, and will consult gastroenterology (2) Hemochromatosis Status: Chronic Problem Text: Managed by phlebotomy every 3-6 months. Last phlebotomy treatment was approximately 1.5 months ago. Pt's serum ferritin was normal as of last study. (3) HTN (hypertension) Status: Chronic Problem Text: Pt's BP over the last 24 hours ranged from 120-148 systolic to 56 -95 diastolic. Plan to continue current medications (4) CAD (coronary artery disease) Status: Chronic Problem Text: Continue current medications (5) Hypothyroid Status: Chronic Problem Text: Continue current medications (6) Hypercholesteremia Status: Chronic Problem Text: Continue current medications (7) History of myocardial infarction Status: Chronic (8) DVT prophylaxis Status: Acute Problem Text: Heparin SC BID Plan/VTE VTE Prophylaxis Ordered?: Yes (Heparin SC) Plan IVF: Continue Diet: Make NPO Activity: Continue Current VS, I&O, 24H, Fishbone Vital Signs/I&O Vital Signs Date Time Temp Pulse Resp B/P Pulse Ox O2 Delivery O2 Flow Rate FiO2 04/15/16 08:46 120/56 04/15/16 06:00 96.4 70 15 94 Room Air I&O- Last 24 Hours up to 6 AM 04/15/16 06:00 Intake Total 0 ml Output Total 0 ml Balance 0 ml Laboratory Data 24H LABS Laboratory Tests 2 04/14/16 18:56: Aspartate Amino Transf (AST/SGOT) 19, Alanine Aminotransferase (ALT/SGPT) 22, Alkaline Phosphatase 106, Total Bilirubin 0.5, Direct Bilirubin 0.1, Albumin 4.0 , Albumin/Globulin Ratio 1.33, Amylase Level 44, Anion Gap 10, White Blood Count 5.6, Red Blood Count 4.94, Hemoglobin 15.6, Hematocrit 46.1, Mean Corpuscular Volume 93.5, Mean Corpuscular Hemoglobin 31.7, Mean Corpuscular Hemoglobin Concent 33.9, Red Cell Distribution Width 12.7, Platelet Count 240, Neutrophils (%) (Auto) 58.0, Lymphocytes (%) (Auto) 27.8, Monocytes (%) (Auto) 9.3H, Eosinophils (%) (Auto) 2.1, Basophils (%) (Auto) 1.1H, Neutrophils # (Auto ) 3.2, Lymphocytes # (Auto) 1.6, Monocytes # (Auto) 0.5, Eosinophils # (Auto) 0.1, Basophils # (Auto) 0.1, Calcium Level 9.3, Glomerular Filtration Rate > 60.0, Large Unclassified Cells # 0.1, Large Unclassified Cells % 1.8, Lipase 262 , Total Protein 7.0 04/14/16 19:46: Urine Amorphous Sediment , Urine Appearance CLEAR, Urine Color STRAW, Urine pH 6.0, Urine Specific Martin 1.004, Urine Protein NEGATIVE, Urine Glucose (UA) NEGATIVE, Urine Ketones NEGATIVE, Urine Urobilinogen 0.2, Urine Bilirubin NEGATIVE, Urine Leukocyte Esterase NEGATIVE, Urine Bacteria (Auto) NEGATIVE, Urine Blood NEGATIVE, Urine Calcium Carbonate Cryst(Auto) , Urine Calcium Oxalate Cryst (Auto) , Urine Calcium Phosphate Razia (Auto) , Urine Cellular Casts , Urine Cystine Crystals , Urine Granular Casts (Auto) , Urine Hyaline Casts (Auto) 0, Urine Leucine Crystals , Urine Mucus (Auto) , Urine Nitrite NEGATIVE, Urine Oval Fat Bodies (Auto) , Urine RBC (Auto) 3, Urine Renal Epithelial Cells , Urine Sperm (Auto) , Urine Squamous Epithelial Cells 0, Urine Transitional Epithelial Cells , Urine Trichomonas (Auto) , Urine Triple Phosphate Cryst (Auto) , Urine Tyrosine Crystals , Urine Uric Acid Crystals ( Auto) , Urine WBC (Auto) 4H, Urine Waxy Casts (Auto) , Urine Yeast-Like Cells ( Auto) 04/15/16 05:53: Aspartate Amino Transf (AST/SGOT) 16, Alanine Aminotransferase (ALT/SGPT) 18, Alkaline Phosphatase 91, Total Bilirubin 0.5, Albumin 3.3, Albumin/Globulin Ratio 1.18, Anion Gap 9, Calcium Level 8.6L, Glomerular Filtration Rate > 60.0, Total Protein 6.1L, Blood Urea Nitrogen 15, Creatinine 0.87, Sodium Level 146H, Potassium Level 3.9, Chloride Level 111H, Carbon Dioxide Level 26 CBC/BMP Laboratory Tests 04/14/16 18:56 Red Blood Count 4.94, Mean Corpuscular Volume 93.5, Mean Corpuscular Hemoglobin 31.7, Mean Corpuscular Hemoglobin Concent 33.9, Red Cell Distribution Width 12.7 , Neutrophils (%) (Auto) 58.0, Lymphocytes (%) (Auto) 27.8, Monocytes (%) (Auto ) 9.3 H, Eosinophils (%) (Auto) 2.1, Basophils (%) (Auto) 1.1 H, Neutrophils # ( Auto) 3.2, Lymphocytes # (Auto) 1.6, Monocytes # (Auto) 0.5, Eosinophils # (Auto ) 0.1, Basophils # (Auto) 0.1 04/15/16 05:53 Red Blood Count 4.29, Mean Corpuscular Volume 94.4, Mean Corpuscular Hemoglobin 32.2, Mean Corpuscular Hemoglobin Concent 34.1, Red Cell Distribution Width 12.7 , Calcium Level 8.6 L, Aspartate Amino Transf (AST/SGOT) 16, Alanine Aminotransferase (ALT/SGPT) 18, Alkaline Phosphatase 91, Total Bilirubin 0.5, Total Protein 6.1 L, Albumin 3.3 Microbiology Microbiology 04/14/16 Urine Culture, Received Pending WOOD CRANE DO Apr 15, 2016 10:01
[2016-04-16 01:00] VITALS: BP 150/80
[2016-04-16] MEDS: HEPARIN SOD (PORCINE) 5000 UNITS/ML VIAL SC SCH ×2 (05:39→05:44)
[2016-04-16 06:00] VITALS: BP 167/80
[2016-04-16 06:04] LABS: MEAN CORPUSCULAR HEMOGLOBIN 32.5 pg (27.0-33.0); MEAN CORPUSCULAR HGB CONC 34.5 g/dl (32.0-36.5); MEAN CORPUSCULAR VOLUME 94.1 fl (80.0-96.0); RED CELL DISTRIBUTION WIDTH 12.6 % (11.5-14.5); WHITE BLOOD COUNT 3.7 K/mm3 (4.0-10.0)
[2016-04-16 06:18] LABS: ALBUMIN 3.1 GM/DL (3.2-5.2); ALBUMIN/GLOBULIN RATIO 1.11 (1.00-1.93); ALKALINE PHOSPHATASE 85 U/L (45-117); ALT/SGPT 16 U/L (12-78); ANION GAP 9 MEQ/L (8-16); AST/SGOT 20 U/L (15-37); BILIRUBIN,TOTAL 0.5 MG/DL (0.2-1.0); BLOOD UREA NITROGEN 13 MG/DL (7-18); CALCIUM LEVEL 8.4 MG/DL (8.8-10.2); CARBON DIOXIDE LEVEL 25 MEQ/L (21-32); CHLORIDE LEVEL 112 MEQ/L (98-107); CREATININE FOR GFR 0.73 MG/DL (0.55-1.02); GLOMERULAR FILTRATION RATE > 60.0 (>32); GLUCOSE, FASTING 85 MG/DL (83-110); POTASSIUM SERUM 3.7 MEQ/L (3.5-5.1); SODIUM LEVEL 146 MEQ/L (136-145); TOTAL PROTEIN 5.9 GM/DL (6.4-8.2)
[2016-04-16 08:29] VITALS: BP 167/80
[2016-04-16] MEDS: OMEGA-3 1050MG CAPSULE PO SCH (08:29)
[2016-04-16] MEDS: ASPIRIN 81 MG ENTERIC TAB PO SCH (08:29)
[2016-04-16] MEDS: LISINOPRIL 10 MG TAB PO SCH (08:29)
[2016-04-16] MEDS: ATORVASTATIN 20 MG TAB PO SCH (08:29)
[2016-04-16] MEDS: NS 1,000 ML IV SCH (08:29)
--- NOTE | 2016-04-16 11:49 | DS.PDOC ---
Discharge Summary General Date of Admission Apr 14, 2016 at 22:06 Date of Discharge Apr 16, 2016 Primary Care Physician: STELLA LOPEZ M.D. Attending Physician: WEN WHITLOCK DO Specialist/Consultants Involve: KIMANI QUINTANA MD Discharge Summary PROCEDURES PERFORMED DURING STAY: MRCP 04/15/16 Gallbladder US 04/15/16 CT abd 04/14/16 COMPLICATIONS/CHIEF COMPLAINT: RUQ abdominal pain DISCHARGE DIAGNOSES: 1. MSK RUQ pain - resolved BRIEF HISTORY: Patient is a 85-year-old female with past medical history significant for hypertension, heart attack, hemachromatosis who presented to the ED on the day of admission with right-sided rib pain and right upper quadrant pain. Pain started the previous night, was in the right post ribs and had some radiation into her legs. Moving and deep breathing made her pain worse, but patient was doing well without pain when she was resting. She denied any nausea, vomiting, fevers, chills, and sweats or weight changes. She had no changes to her bowel movements. Denied diarrhea, constipation. Pt reported shoveling her driveway the day prior. Reports that she is typically active, and often mows the lawn and shovels snow without any complications. Pt had CT of the pelvis and abdomen taken in the ED which showed "extrahepatic biliary ductal dilatation of the common bile duct and pancreatic duct." Her laboratory studies were WNL including a normal amylase, lipase, and liver enzymes. HOSPITAL COURSE: Pt was admitted for observation to the medical unit for further workup and stabilization. Pain was controlled with pain medications. The patient had a MRCP which showed "diffuse dilatation of the pancreatic duct." This was discussed with the sanding machine operator or tender and he recommended ordering a gallbladder US which showed "Normal right upper quadrant and gallbladder abdominal ultrasound. Prominence to the common bile duct and pancreatic duct are likely age-related." Dr. Quintana evaluated the patient on 04/15/16. He believes that she is having MSK/costochondritis pain after shoveling her driveway. He notes that the dilated ducts are probably age related changes. At the time of discharge, the patient was comfortable without pain. She denied any bowel or MSK complaints. She was agreeable to being discharged home. DISCHARGE MEDICATIONS: Please see below. ALLERGIES: Please see below. PHYSICAL EXAMINATION ON DISCHARGE: VITAL SIGNS: Please see below. GENERAL: NAD, Was calm and cooperative HEENT: Normocephalic, atraumatic, EOMI CARDIOVASCULAR EXAMINATION: RRR, no murmurs RESPIRATORY EXAMINATION: Clear b/l, no wheezes ABDOMINAL EXAMINATION: normoactive bowel sounds throughout, nontender to palpation, no guarding, no rebound tenderness EXTREMITIES: No edema SKIN: Warm, dry, no rashes NEUROLOGICAL EXAMINATION: normal sensation LABORATORY DATA: Please see below. IMAGING: CT abd and Pelvis 04/14/16: 1. Significant extrahepatic biliary ductal dilatation of the common bile duct and pancreatic duct. No distal obstructing stone or mass. 2. No obstructive or inflammatory bowel changes. 3. Small hiatal hernia. 4. 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 5. Severe spondylosis of the lumbar spine. MRCP 04/15/16: Gallbladder US on 04/15/16: "Normal right upper quadrant and gallbladder abdominal ultrasound. Prominence to the common bile duct and pancreatic duct are likely age-related." VTE Prophylaxis ordered?: yes DISCHARGE CONDITION: Stable DISPOSITION: Discharge to home. ACTIVITY: As tolerated. DIET: As tolerated. DISCHARGE PLAN AND INSTRUCTIONS: Follow up with PCP in 3-7 days. TIME SPENT ON DISCHARGE: Greater than 30 minutes. Vital Signs/I&Os Vital Signs Date Time Temp Pulse Resp B/P Pulse Ox O2 Delivery O2 Flow Rate FiO2 04/16/16 08:29 167/80 04/16/16 06:00 96.5 76 18 93 Room Air I&O- Last 24 Hours up to 6 AM 04/16/16 06:00 Intake Total 2720 ml Output Total 50 ml Balance 2670 ml Laboratory Data Labs 24H Laboratory Tests 2 04/16/16 05:39: Blood Urea Nitrogen 13, Creatinine 0.73, Sodium Level 146H, Potassium Level 3.7 , Chloride Level 112H, Carbon Dioxide Level 25, Calcium Level 8.4L, Aspartate Amino Transf (AST/SGOT) 20, Alanine Aminotransferase (ALT/SGPT) 16, Alkaline Phosphatase 85, Total Bilirubin 0.5, Total Protein 5.9L, Albumin 3.1L, Albumin/ Globulin Ratio 1.11, Anion Gap 9, Glomerular Filtration Rate > 60.0 CBC/BMP Laboratory Tests 04/16/16 05:39 Calcium Level 8.4 L, Aspartate Amino Transf (AST/SGOT) 20, Alanine Aminotransferase (ALT/SGPT) 16, Alkaline Phosphatase 85, Total Bilirubin 0.5, Total Protein 5.9 L, Albumin 3.1 L, Red Blood Count 4.17, Mean Corpuscular Volume 94.1, Mean Corpuscular Hemoglobin 32.5, Mean Corpuscular Hemoglobin Concent 34.5, Red Cell Distribution Width 12.6 Microbiology Microbiology 04/14/16 Urine Culture - Final, Complete Medications Scheduled (Vitamin C & D3/Adalgisa... 500-1000-20 mg-Unit-mg) 1 Cap Cap 1 CAP PO DAILY Aspirin (Aspir-81) 81 Mg Tab 81 MG PO DAILY Atorvastatin Calcium (Atorvastatin Calcium) 20 Mg Tab 20 MG PO DAILY Fish Oil (Fish Oil) 1,000 Mg Cap 1,000 MG PO DAILY Lisinopril (Lisinopril) 10 Mg Tab 10 MG PO DAILY Scheduled PRN Docusate Sodium (Colace) 100 Mg Cap 100 MG PO DAILY PRN PRN BOWEL CARE/ CONSTIPATION Allergies Coded Allergies: No Known Allergies (Verified Allergy, Unknown, 03/06/08) GME ATTESTATION My preceptor for this patient encounter was physically present in the building during the encounter and was fully available. As needed, all aspects of the patient interview, examination, medical decision making process, and medical care plan development were reviewed and approved by the preceptor. Preceptor is aware and concurs with the plan as stated in the body of this note and will attest to such by his/her cosignature. WOOD CRANE DO Apr 16, 2016 10:27
--- NOTE | 2016-04-17 01:11 | EDDOCDS ---
Physician Documentation [facility] Name: Gricelda Lange Age: 85 yrs Sex: Female : 1930 Arrival Date: 04/14/2016 Time: 18:11 Bed I5 / M5 Private MD: Disposition: 04/14/16 23:21 Hospitalization ordered by Harley Macias for Inpatient Admission. Preliminary diagnosis is Abnormal findings on diagnostic imaging of liver and biliary tract. - Bed requested for 4 [place]. - Status is Inpatient Admission. ld5 - Condition is Stable. - Problem is new. - Symptoms are unchanged. Historical: - Allergies: no known allergies; - Home Meds: 1. atorvastatin oral oral 1 tab once daily 2. lisinopril 30 mg Oral tab 1 tab once daily 3. Fish Oil 183.3 mg-75 mg -91.6 mg-306 mg Oral cap daily 4. Vitamin C 500 mg Oral cpER daily - PMHx: Hypertension; [place]; Hemochromatosis; - PSHx: Hysterectomy; Carpal Tunnel Repair- Bilateral; - Social history: Smoking status: Patient states former smoker of tobacco. No barriers to communication noted, The patient speaks fluent Andorran. - Family history: Not pertinent. - : The pt / caregiver states he / she is not on anticoagulants. Home medication list is obtained from the patient. - Exposure Risk Screening:: None identified. Vital Signs: 04/14 18:14 BP 196 / 71; Pulse 86; Resp 16; Temp 97.5(O); Pulse Ox 98% on R/A; Weight 56.7 kg / 125 lr2 lbs (R); Pain 9/10; 18:32 BP 160 / 82 LA Sitting (man/lg); jb5 19:58 BP 164 / 84 (man/); Pulse 80; Resp 16; Pulse Ox 98% on R/A; Pain 0/10; ld5 21:13 BP 174 / 79; Pulse 87; Resp 18; Temp 97.9(O); Pulse Ox 97% on R/A; lf1 04/15 00:07 BP 158 / 78 RA (man/); Pulse 85; Resp 16; Temp 98.1; Pulse Ox 95% on R/A; ld5 MDM: 04/14 18:28 Recheck B/P ordered. ck7 18:47 Undress patient appropriately for examination ordered. ck7 18:47 IV Saline Lock ordered. ck7 18:47 NS 0.9% 500 ml IV at bolus once ordered. ck7 18:47 morphine 2 mg IVP once ordered. ck7 18:47 Ondansetron 4 mg IVP once ordered. ck7 18:48 Amylase Ordered. EDMS 18:48 Basic Metabolic Profile Ordered. EDMS 18:48 CBC with Diff Ordered. EDMS 18:48 Lipase Ordered. EDMS 18:48 Liver Profile Ordered. EDMS 18:48 Urinalysis Ordered. EDMS 18:48 Urine Culture Ordered. EDMS 18:48 NOTHING BY MOUTH+DIET ordered. EDMS 19:34 CBC with Diff Reviewed. ck7 20:11 Basic Metabolic Profile Reviewed. ck7 20:11 Urinalysis Reviewed. ck7 20:11 Amylase Reviewed. ck7 20:11 Lipase Reviewed. ck7 20:11 Liver Profile Reviewed. ck7 20:22 CT ABD & PELVIS: IV Contrast Only Ordered. EDMS 21:46 CT ABD & PELVIS: IV Contrast Only Reviewed. ck7 22:00 Financial registration complete. zo 22:07 [facility] [place] Payment Agreement was scanned into [employer] and attached to record. [email or web address] 22:08 Admission / Observation Status ordered. EDMS 23:15 COMPLETE BLOOD COUNT Ordered. EDMS 23:16 MRI ABDOMEN WITHOUT CONTRAST Ordered. EDMS 23:21 BED REQUEST+ADM ordered. EDMS 23:24 NPO FOR TEST/PROCEDURE ordered. EDMS 02/ 00:00 COMPLETE COMPHRENSIVE METABOLI Ordered. EDMS 12:27 T-Sheet-- Draft Copy was scanned into [employer] and attached to record. gb 12:27 Radiology Report was scanned into [employer] and attached to record. gb Administered Medications: 04/14 19:07 Drug: NS 0.9% 500 ml [sodium chloride 0.9 % intravenous solution] Route: IV; Rate: mk4 bolus; Site: left antecubital; 20:24 Follow up: IV Status: Completed infusion; IV Intake: 500ml ld5 19:07 Drug: morphine 2 mg [morphine 2 mg/mL intravenous cartridge (1 mL)] Route: IVP; Site: mk4 left antecubital; 19:58 Follow up: BP 164 / 84 Right Arm Manual; Pulse 80 bpm; Resp 16 bpm; Pulse Ox 98% RA; ld5 Pain 0/10 Adult; Response: Confirmed pt not driving.; Pain is decreased 19:07 Drug: Ondansetron 4 mg Route: IVP; Site: left antecubital; mk4 19:58 Follow up: Response: Nausea is decreased ld5 Signatures: Dispatcher [employer] EDMS Naresh LOWE, Ankita, RN RN daq Stephie Zamora, Reg Reg gb Rocco White Rosemary, RN RN rs3 Madelaine Stephenson RN RN ld5 Fabio Rodríguez, RPA-C RPA-Cck7 Rosmery Dailey, Reg Reg ks16 Laurie Gallardo RN mk4 The chart was reviewed and I authenticate all verbal orders and agree with the evaluation and treatment provided.Corrections: (The following items were deleted from the chart) 23:24 23:15 2 GRAM SODIUM DIET ordered. EDMS EDMS 04/15 00:02 04/14 23:16 BASIC METABOLIC PROFILE ordered. EDMS EDMS Attachments: 22:07 [facility] [place] Payment Agreement ks04/[email or web address] 12:27 T-Sheet-- Draft Copy gb Chart Complete MTDD
--- NOTE | 2016-04-17 01:11 | EDDOCDS ---
Physician Documentation [facility] Name: Gricelda Lange Age: 85 yrs Sex: Female : 1930 Arrival Date: 04/14/2016 Time: 18:11 Bed I5 / M5 Private MD: Disposition: 04/14/16 23:21 Hospitalization ordered by Harley Macias for Inpatient Admission. Preliminary diagnosis is Abnormal findings on diagnostic imaging of liver and biliary tract. - Bed requested for 4 [place]. - Status is Inpatient Admission. ld5 - Condition is Stable. - Problem is new. - Symptoms are unchanged. Historical: - Allergies: no known allergies; - Home Meds: 1. atorvastatin oral oral 1 tab once daily 2. lisinopril 30 mg Oral tab 1 tab once daily 3. Fish Oil 183.3 mg-75 mg -91.6 mg-306 mg Oral cap daily 4. Vitamin C 500 mg Oral cpER daily - PMHx: Hypertension; [place]; Hemochromatosis; - PSHx: Hysterectomy; Carpal Tunnel Repair- Bilateral; - Social history: Smoking status: Patient states former smoker of tobacco. No barriers to communication noted, The patient speaks fluent [place] Zeal[place]. - Family history: Not pertinent. - : The pt / caregiver states he / she is not on anticoagulants. Home medication list is obtained from the patient. - Exposure Risk Screening:: None identified. Vital Signs: 04/14 18:14 BP 196 / 71; Pulse 86; Resp 16; Temp 97.5(O); Pulse Ox 98% on R/A; Weight 56.7 kg / 125 lr2 lbs (R); Pain 9/10; 18:32 BP 160 / 82 LA Sitting (man/lg); jb5 19:58 BP 164 / 84 (man/); Pulse 80; Resp 16; Pulse Ox 98% on R/A; Pain 0/10; ld5 21:13 BP 174 / 79; Pulse 87; Resp 18; Temp 97.9(O); Pulse Ox 97% on R/A; lf1 04/15 00:07 BP 158 / 78 RA (man/); Pulse 85; Resp 16; Temp 98.1; Pulse Ox 95% on R/A; ld5 MDM: 04/14 18:28 Recheck B/P ordered. ck7 18:47 Undress patient appropriately for examination ordered. ck7 18:47 IV Saline Lock ordered. ck7 18:47 NS 0.9% 500 ml IV at bolus once ordered. ck7 18:47 morphine 2 mg IVP once ordered. ck7 18:47 Ondansetron 4 mg IVP once ordered. ck7 18:48 Amylase Ordered. EDMS 18:48 Basic Metabolic Profile Ordered. EDMS 18:48 CBC with Diff Ordered. EDMS 18:48 Lipase Ordered. EDMS 18:48 Liver Profile Ordered. EDMS 18:48 Urinalysis Ordered. EDMS 18:48 Urine Culture Ordered. EDMS 18:48 NOTHING BY MOUTH+DIET ordered. EDMS 19:34 CBC with Diff Reviewed. ck7 20:11 Basic Metabolic Profile Reviewed. ck7 20:11 Urinalysis Reviewed. ck7 20:11 Amylase Reviewed. ck7 20:11 Lipase Reviewed. ck7 20:11 Liver Profile Reviewed. ck7 20:22 CT ABD & PELVIS: IV Contrast Only Ordered. EDMS 21:46 CT ABD & PELVIS: IV Contrast Only Reviewed. ck7 22:00 Financial registration complete. zo 22:07 [facility] [place] Payment Agreement was scanned into [employer] and attached to record. [email or web address] 22:08 Admission / Observation Status ordered. EDMS 23:15 COMPLETE BLOOD COUNT Ordered. EDMS 23:16 MRI ABDOMEN WITHOUT CONTRAST Ordered. EDMS 23:21 BED REQUEST+ADM ordered. EDMS 23:24 NPO FOR TEST/PROCEDURE ordered. EDMS 02/ 00:00 COMPLETE COMPHRENSIVE METABOLI Ordered. EDMS 12:27 T-Sheet-- Draft Copy was scanned into [employer] and attached to record. gb 12:27 Radiology Report was scanned into [employer] and attached to record. gb Administered Medications: 04/14 19:07 Drug: NS 0.9% 500 ml [sodium chloride 0.9 % intravenous solution] Route: IV; Rate: mk4 bolus; Site: left antecubital; 20:24 Follow up: IV Status: Completed infusion; IV Intake: 500ml ld5 19:07 Drug: morphine 2 mg [morphine 2 mg/mL intravenous cartridge (1 mL)] Route: IVP; Site: mk4 left antecubital; 19:58 Follow up: BP 164 / 84 Right Arm Manual; Pulse 80 bpm; Resp 16 bpm; Pulse Ox 98% RA; ld5 Pain 0/10 Adult; Response: Confirmed pt not driving.; Pain is decreased 19:07 Drug: Ondansetron 4 mg Route: IVP; Site: left antecubital; mk4 19:58 Follow up: Response: Nausea is decreased ld5 Signatures: Dispatcher [employer] EDMS Naresh LOWE, Ankita, RN RN daq Stephie Zamora, Reg Reg gb Rocco White Rosemary, RN RN rs3 Madelaine Stephenson RN RN ld5 Fabio Rodríguez, RPA-C RPA-Cck7 Rosmery Dailey, Reg Reg ks16 Laurie Gallardo RN mk4 The chart was reviewed and I authenticate all verbal orders and agree with the evaluation and treatment provided.Corrections: (The following items were deleted from the chart) 23:24 23:15 2 GRAM SODIUM DIET ordered. EDMS EDMS 04/15 00:02 04/14 23:16 BASIC METABOLIC PROFILE ordered. EDMS EDMS Attachments: 22:07 [facility] [place] Payment Agreement ks04/15 12:27 T-Sheet-- Draft Copy gb Chart Complete MTDD
--- NOTE | 2016-04-17 01:11 | EDDOCDS ---
Nurse's Notes [facility] Name: Gricelda Lange Age: 85 yrs Sex: Female : 1930 Arrival Date: 04/14/2016 Time: 18:11 Bed I5 / M5 Private MD: Diagnosis: Abnormal findings on diagnostic imaging of liver and biliary tract Presentation: 04/14 18:15 Presenting complaint: Patient states: Right lower back pain radiating to RLQ and right rs3 leg, worse with movement. Acute neurological deficits are not present. Mechanism of Injury: No Mechanism of Injury. Adult Sepsis Screening: The patient does not have new or worsening altered mentation. Patient's respiratory rate is less than 22. Systolic blood pressure is greater than 100. Patient has a qSOFA score of 0- Negative Sepsis Screen. Suicide/Homicide risk assessment- the patient denies having any suicidal and/or homicidal ideations and does not present with any other emotional, behavioral or mental health complaints. 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 Transition of care: patient was not received from another setting of care. 18:15 Acuity: NASIM Level 3 rs3 18:15 Method Of Arrival: Wheelchair rs3 Triage Assessment: 18:18 General: Appears in no apparent distress. Pain: Location: posterior aspect of right rs3 lateral abdomen and anterior aspect of right lateral abdomen. Musculoskeletal: Reports Pain is 7 out of 10 on a pain scale. Historical: - Allergies: no known allergies; - Home Meds: 1. atorvastatin oral oral 1 tab once daily 2. lisinopril 30 mg Oral tab 1 tab once daily 3. Fish Oil 183.3 mg-75 mg -91.6 mg-306 mg Oral cap daily 4. Vitamin C 500 mg Oral cpER daily - PMHx: Hypertension; SC; Hemochromatosis; - PSHx: Hysterectomy; Carpal Tunnel Repair- Bilateral; - Social history: Smoking status: Patient states former smoker of tobacco. No barriers to communication noted, The patient speaks fluent Eritrean. - Family history: Not pertinent. - : The pt / caregiver states he / she is not on anticoagulants. Home medication list is obtained from the patient. - Exposure Risk Screening:: None identified. Screenin/17 00:07 Screening information is obtained from the patient, family members. Fall risk: At risk ld5 due to pain. Assistance ADL's: Requires assistance with housework, assistance is provided by family members. Abuse/DV Screen: The patient / caregiver reports he/she is: not in a situation that causes fear, pain or injury. Nutritional screening: No deficits noted. Advance Directives: There is an active DNR order and the pt has a copy here at this time. home support is adequate. Assessment: 04/14 19:00 General: Appears in no apparent distress, Behavior is appropriate for age, cooperative. kr3 Pain: Location: anterior aspect of right lateral abdomen and posterior aspect of right lateral abdomen Pain currently is 0 out of 10 on a pain scale. At worst was 10 out of 10 on a pain scale. Aggravated by increased activity, repositioning, weight bearing. Neurological: Level of Consciousness is awake, alert. Respiratory: Respiratory effort is even, unlabored. GI: Denies nausea, vomiting. : Denies burning with urination, urinary frequency, urgency. Derm: Skin is normal. 19:58 General: Pt laying quietly in bed. Reports no pain until she moves her right leg. No ld5 apparent distress. Family at bedside. Will continue to monitor. 21:05 General: Appears in no apparent distress, comfortable, Behavior is cooperative. Pain: lf1 Location: anterior aspect of right lateral abdomen and posterior aspect of right lateral abdomen. Neurological: Level of Consciousness is awake, alert. EENT: No deficits noted. Respiratory: Respiratory effort is even, unlabored. GI: Denies nausea, vomiting. Derm: Skin is fragile, is thin. 21:13 Adult Sepsis Screening: The patient does not have new or worsening altered mentation. lf1 Patient's respiratory rate is less than 22. Systolic blood pressure is greater than 100. Patient has a qSOFA score of 0- Negative Sepsis Screen. General: Appears in no apparent distress, Behavior is cooperative. Pain: Denies pain. Noted to be Pt denies pain, however states "I have a lot of discomfort all over". Points to right lower quadrant and grimaces with movement and palpation. Neurological: Level of Consciousness is awake, alert. EENT: No deficits noted. Respiratory: Respiratory effort is even, unlabored. GI: Abd is tender to palpation in right lower quadrant. 22:30 General: Pt laying quietly in bed. No apparent distress. Awaiting consulting MDs. Call ld5 quevedo within reach. Will continue to monitor. 23:29 General: Pt resting comfortably in bed. No apparent distress. Dr. Macias in to assess ld5 pt. Family remains at bedside. Will continue to monitor. Vital Signs: 18:14 BP 196 / 71; Pulse 86; Resp 16; Temp 97.5(O); Pulse Ox 98% on R/A; Weight 56.7 kg (R); lr2 Pain 9/10; 18:32 BP 160 / 82 LA Sitting (man/lg); jb5 19:58 BP 164 / 84 (man/); Pulse 80; Resp 16; Pulse Ox 98% on R/A; Pain 0/10; ld5 21:13 BP 174 / 79; Pulse 87; Resp 18; Temp 97.9(O); Pulse Ox 97% on R/A; lf1 04/15 00:07 BP 158 / 78 RA (man/); Pulse 85; Resp 16; Temp 98.1; Pulse Ox 95% on R/A; ld5 Vitals: 04/14 18:14 Log In Time: April 14, 2016 at 18:11. lr2 ED Course: 18:13 Patient visited by Madelaine Zabala. lr2 18:13 Patient moved to Waiting lr2 18:14 Patient moved to Pre RCE lr2 18:17 Triage Initiated rs3 18:20 Patient moved to Triage 2 ck1 18:32 Patient visited by Marlin Parada PCA. jb5 18:32 Patient visited by Marlin Parada PCA. jb5 18:41 Fabio Rodríguez RPA-C [facility]. ck7 18:41 Humberto Vance MD is Attending Physician. ck7 18:41 Patient visited by Fabio Rodríguez RPA-C. ck7 18:47 Patient moved to I5 / M5 jo3 18:59 Amylase Sent. kr3 18:59 Basic Metabolic Profile Sent. kr3 18:59 CBC with Diff Sent. kr3 18:59 Lipase Sent. kr3 18:59 Liver Profile Sent. kr3 19:00 The patient / caregiver is instructed regarding the plan of care and ED course. kr3 Accompanied by Friend, Patient has correct armband on for positive identification. Placed in gown. Bed in low position. Call light in reach. Side rails up X 1. 19:00 Inserted saline lock: 20 gauge in left antecubital area and blood collected. The kr3 patient tolerated the procedure well. 19:12 Patient visited by Fabio Rodríguez RPA-C. ck7 19:52 Patient visited by Fabio Rodríguez RPA-C. ck7 19:59 Patient visited by Madelaine Stephenson RN. ld5 20:36 Patient visited by Fabio Rodríguez RPA-C. ck7 21:11 Patient visited by Fabio Rodríguez RPA-C. ck7 21:46 Patient visited by Fabio Rodríguez RPA-C. ck7 21:46 CT ABD & PELVIS: IV Contrast Only Returned. EDMS 22:07 [facility] Payment Agreement was scanned into [employer] and attached to record. ks16 23:09 Patient visited by Madelaine Stephenson RN. ld5 23:21 Harley Macias DO is Hospitalizing Provider. ck7 23:29 No procedures done that require assistance. ld5 23:30 Patient visited by Madelaine Stephenson RN. ld5 04/15 00:10 Patient visited by Madelaine Stephenson RN. ld5 12:27 T-Sheet-- Draft Copy was scanned into [employer] and attached to record. gb 12:27 Radiology Report was scanned into [employer] and attached to record. gb Administered Medications: 04/14 19:07 Drug: NS 0.9% 500 ml [sodium chloride 0.9 % intravenous solution] Route: IV; Rate: mk4 bolus; Site: left antecubital; 20:24 Follow up: IV Status: Completed infusion; IV Intake: 500ml ld5 19:07 Drug: morphine 2 mg [morphine 2 mg/mL intravenous cartridge (1 mL)] Route: IVP; Site: [facility] left antecubital; 19:58 Follow up: BP 164 / 84 Right Arm Manual; Pulse 80 bpm; Resp 16 bpm; Pulse Ox 98% RA; ld5 Pain 0/10 Adult; Response: Confirmed pt not driving.; Pain is decreased 19:07 Drug: Ondansetron 4 mg Route: IVP; Site: left antecubital; 4 19:58 Follow up: Response: Nausea is decreased ld5 Intake: 20:24 IV: 500.00ml; Total: 500.00ml. ld5 Order Results: Lab Order: Amylase; SPEC'M 04/14/17 18:56 Test: AMYLASE; Value: 44; Range: 25-115; Units: U/L; Status: F Lab Order: Basic Metabolic Profile; 04/14/16 18:56 Test: GLUCOSE, FASTING; Value: 94; Range: 83-110; Units: MG/DL; Status: F Test: BLOOD UREA NITROGEN; Value: 19; Range: 7-18; Abnormal: Above high normal; Units: MG/DL; Status: F Test: CREATININE FOR GFR; Value: 0.87; Range: 0.55-1.02; Units: MG/DL; Status: F Test: GLOMERULAR FILTRATION RATE; Value: > 60.0; Range: >32; Status: F Test: SODIUM LEVEL; Value: 143; Range: 136-145; Units: MEQ/L; Status: F Test: POTASSIUM SERUM; Value: 4.1; Range: 3.5-5.1; Units: MEQ/L; Status: F Test: CHLORIDE LEVEL; Value: 109; Range: 98-107; Abnormal: Above high normal; Units: MEQ/L; Status: F Test: CARBON DIOXIDE LEVEL; Value: 24; Range: 21-32; Units: MEQ/L; Status: F Test: ANION GAP; Value: 10; Range: 8-16; Units: MEQ/L; Status: F Test: CALCIUM LEVEL; Value: 9.3; Range: 8.8-10.2; Units: MG/DL; Status: F Test Note: ; Units are mL/min/1.73 m2 Chronic Kidney Disease Staging per NKF: Stage I & II GFR >=60 Normal to Mildly Decreased Stage III GFR 30-59 Moderately Decreased Stage IV GFR 15-29 Severely Decreased Stage V GFR <15 Very Little GFR Left ESRD GFR <15 on VARNISH DIPPER Lab Order: CBC with Diff; SPEC04/14/16 18:56 Test: WHITE BLOOD COUNT; Value: 5.6; Range: 4.0-10.0; Units: K/mm3; Status: F Test: RED BLOOD COUNT; Value: 4.94; Range: 4.00-5.40; Units: M/mm3; Status: F Test: HEMOGLOBIN; Value: 15.6; Range: 12.0-16.0; Units: g/dl; Status: F Test: HEMATOCRIT; Value: 46.1; Range: 36.0-47.0; Units: %; Status: F Test: MEAN CORPUSCULAR VOLUME; Value: 93.5; Range: 80.0-96.0; Units: fl; Status: F Test: MEAN CORPUSCULAR HEMOGLOBIN; Value: 31.7; Range: 27.0-33.0; Units: pg; Status: F Test: MEAN CORPUSCULAR HGB CONC; Value: 33.9; Range: 32.0-36.5; Units: g/dl; Status: F Test: RED CELL DISTRIBUTION WIDTH; Value: 12.7; Range: 11.5-14.5; Units: %; Status: F Test: PLATELET COUNT, AUTOMATED; Value: 240; Range: 150-450; Units: k/mm3; Status: F Test: NEUTROPHILS %; Value: 58.0; Range: 36.0-66.0; Units: %; Status: F Test: LYMPH %; Value: 27.8; Range: 24.0-44.0; Units: %; Status: F Test: MONO %; Value: 9.3; Range: 0.0-5.0; Abnormal: Above high normal; Units: %; Status: F Test: EOS %; Value: 2.1; Range: 0.0-3.0; Units: %; Status: F Test: BASO %; Value: 1.1; Range: 0.0-1.0; Abnormal: Above high normal; Units: %; Status: F Test: LARGE UNSTAINED CELL %; Value: 1.8; Range: 0.0-4.0; Units: %; Status: F Test: NEUTROPHILS #; Value: 3.2; Range: 1.8-7.7; Units: K/mm3; Status: F Test: LYMPH #; Value: 1.6; Range: 1.5-4.5; Units: K/mm3; Status: F Test: MONO #; Value: 0.5; Range: 0.0-0.8; Units: K/mm3; Status: F Test: EOS #; Value: 0.1; Range: 0.0-0.50; Units: K/mm3; Status: F Test: BASO #; Value: 0.1; Range: 0.0-0.2; Units: K/mm3; Status: F Test: LARGE UNSTAINED CELL #; Value: 0.1; Range: 0.0-0.4; Units: K/mm3; Status: F Lab Order: Lipase; [facility] 04/14/16 18:56 Test: LIPASE; Value: 262; Range: 73-393; Units: U/L; Status: F Lab Order: Liver Profile; [facility] 04/14/16 18:56 Test: AST/SGOT; Value: 19; Range: 15-37; Units: U/L; Status: F Test: ALT/SGPT; Value: 22; Range: 12-78; Units: U/L; Status: F Test: ALKALINE PHOSPHATASE; Value: 106; Range: 45-117; Units: U/L; Status: F Test: BILIRUBIN,TOTAL; Value: 0.5; Range: 0.2-1.0; Units: MG/DL; Status: F Test: BILIRUBIN,DIRECT; Value: 0.1; Range: 0.0-0.2; Units: MG/DL; Status: F Test: TOTAL PROTEIN; Value: 7.0; Range: 6.4-8.2; Units: GM/DL; Status: F Test: ALBUMIN; Value: 4.0; Range: 3.2-5.2; Units: GM/DL; Status: F Test: ALBUMIN/GLOBULIN RATIO; Value: 1.33; Range: 1.00-1.93; Status: F Lab Order: Urinalysis; [facility] 04/14/16 19:46 Test: APPEARANCE, URINE; Value: CLEAR; Range: CLEAR; Status: F Test: COLOR, URINE; Value: STRAW; Range: YELLOW; Status: F Test: PH,URINE; Value: 6.0; Range: 5.0-9.0; Units: UNITS; Status: F Test: SPECIFIC GRAVITY URINE AUTO; Value: 1.004; Range: 1.002-1.035; Status: F Test: PROTEIN, URINE AUTO; Value: NEGATIVE; Range: NEGATIVE; Units: mg/dL; Status: F Test: GLUCOSE, URINE (UA) AUTO; Value: NEGATIVE; Range: NEGATIVE; Units: mg/dL; Status: F Test: KETONE, URINE AUTO; Value: NEGATIVE; Range: NEGATIVE; Units: mg/dL; Status: F Test: UROBILINOGEN, URINE AUTO; Value: 0.2; Range: 0.0-2.0; Units: mg/dL; Status: F Test: BILIRUBIN, URINE AUTO; Value: NEGATIVE; Range: NEGATIVE; Status: F Test: NITRITE, URINE AUTO; Value: NEGATIVE; Range: NEGATIVE; Status: F Test: LEUKOCYTE ESTERASE, URINE AUTO; Value: NEGATIVE; Range: NEGATIVE; Status: F Test: BLOOD, URINE BLOOD; Value: NEGATIVE; Range: NEGATIVE; Status: F Test: WBC, URINE AUTO; Value: 4; Range: 0-3; Abnormal: Above high normal; Units: /HPF; Status: F Test: RBC, URINE AUTO; Value: 3; Range: 0-3; Units: /HPF; Status: F Test: BACTERIA, URINE AUTO; Value: NEGATIVE; Range: NEGATIVE; Status: F Test: SQUAMOUS EPITHELIAL CELL UR AU; Value: 0; Range: 0-6; Units: /HPF; Status: F Test: HYALINE CAST, URINE AUTO; Value: 0; Range: 0-1; Units: /LPF; Status: F Radiology Order: CT ABD & PELVIS: IV Contrast Only Test: CT ABD & PELVIS: IV Contrast Only REASON FOR EXAMINATION: Abdomen Pain; ; CT of the abdomen and pelvis with contrast; Clinical statement: Pain.; Technique: Multiple axial CT images were obtained from the base of the lungs through the floor of the; pelvis utilizing 5 mm axial slices after administration of nonionic intravenous contrast. Coronal an; d sagittal reconstructions were also obtained.; No comparison is available.; Findings:; Chest: The visualized lung bases are clear. There is a small hiatal hernia.; Abdomen: The liver, pancreas, kidneys, gallbladder, and adrenal glands are unremarkable. The common b; ile duct is dilated measuring up to 9 mm. The pancreatic duct is also dilated. No obstructing lesion; or mass is identified however. There is a solid enhancing mass in the anterior aspect of the spleen,; measuring 4.4 x 4.8 cm. The aorta is within normal limits, other than mild atherosclerotic calcificat; ions. There is no evidence of abdominal lymphadenopathy or ascites.; Pelvis: The bowel is unremarkable, with no obstructive or inflammatory changes. The urinary bladder i; s within normal limits. The other pelvic structures appear grossly intact. There is no evidence of pe; lvic lymphadenopathy or ascites.; Bones: There are no suspicious osseous abnormalities seen. Severe multilevel degenerative disc diseas; e is noted throughout the lumbar spine with disc osteophyte complexes and disc bulges. No acute fract; ures identified. Mild osteoarthritis of the hip joints is noted.; Impression:; 1. Significant extrahepatic biliary ductal dilatation of the common bile duct and pancreatic duct. No; distal obstructing stone or mass is identified on this study. If there is further clinical concern,; MRCP or ERCP could prove helpful.; 2. No obstructive or inflammatory bowel changes.; 3. Small hiatal hernia.; 4. 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 Severe spondylosis of the lumbar spine.; ; Outcome: 23:21 Decision to Hospitalize by Provider. ck7 23:29 CT Study completed. ld5 04/15 00:09 Discharge Assessment: Patient awake, alert and oriented x 3. No cognitive and/or ld5 functional deficits noted. Patient verbalized understanding of disposition instructions. patient administered narcotics - yes. Patient was admitted to the hospital or transferred to another facility. The following High Risk Discharge criteria are identified: None. Admitted to Med/Surg accompanied by tech, family with patient, via stretcher, with chart. Condition: stable. Property :Personal belongings accompany Pt. 00:10 Patient left the ED. ld5 Signatures: Dispatcher [employer] EDSD Stephie Zamora, Reg Reg gb Deborah LesterRN RN ck1 Sara Solano,RN RN kr3 Marlin Parada, TRAN SOFTWARE CONFIGURATION ENGINEER jb5 Emelnia QuirosRN RN [id number] Carolyn HahnRN RN lf1 Nilda Newman RN RN rs3 Madelaine Stephenson,BARAK RN ld5 Fabio Rodríguez, RPA-C [id number] Laurie Gallardo, BARAK RN Rosmery Valdez, Reg Reg ks16 Madelaine Zabala lr2 Corrections: (The following items were deleted from the chart) 04/14 21:16 21:06 IV Status: Completed infusion; IV Intake: 500ml lf1 lf1 Chart Complete MTDD
== END 2016-04-16 11:46 | disposition home or self-care (01) ==
LOC: M ED 18:11 → M ED INP 22:06 → M MSPAV 04-15 00:13
PROVIDERS: ADMIT Hospitalist; ATTEND Internal Medicine
DX: R10.11 Right upper quadrant pain (principal); I10 Essential (primary) hypertension; I25.2 Old myocardial infarction; E83.119 Hemochromatosis, unspecified; Z79.82 Long term (current) use of aspirin; Z79.899 Other long term (current) drug therapy; Z98.61 Coronary angioplasty status
CPT/HCPCS: 36415; 74177; 74181; 76705; 80048; 80053; 80076; 81001; 82150; 83690; 85025; 85027; 87086; 96361; 96374; 96375; 96376; 99285; G0378; J2405; Q9967

== ENCOUNTER → 2016-05-19 | Outpatient (REF) | payer OTHER ==
[~2016-05-19] MED LIST changes: +ATOR1TAB21 PO; +FISH1000 PO; +LISI10TA4 PO; +VITA1CAP6 PO
[2016-05-19 18:13] LABS: PERCENT SATURATION 77.1 % (13.2-37.4)
== END ==
LOC: M LAB REF 16:36
PROVIDERS: ATTEND Internal Medicine Medical Oncology
DX: E83.119 Hemochromatosis, unspecified (principal)

== ENCOUNTER → 2016-08-17 | Outpatient (REF) | payer OTHER ==
[~2016-08-17] MED LIST changes: -COLA100C PO; +COLA100C3 PO
[2016-08-17 14:03] LABS: PERCENT SATURATION 42.2 % (13.2-37.4)
== END ==
LOC: M LAB REF 12:44
PROVIDERS: ATTEND Internal Medicine Medical Oncology
DX: E83.110 Hereditary hemochromatosis (principal)

== ENCOUNTER → 2016-11-30 | Outpatient (REF) | payer OTHER ==
[~2016-11-30] MED LIST changes: -COLA100C3 PO; +COLA100C5 PO; -FOLI1TAB2 PO; +FOLI1TAB4 PO
[2016-11-30 14:18] LABS: PERCENT SATURATION 77.5 % (13.2-45.0)
== END ==
LOC: M LAB REF 13:17
PROVIDERS: ATTEND Internal Medicine Medical Oncology
DX: E83.119 Hemochromatosis, unspecified (principal)

== ENCOUNTER → 2017-01-26 | Outpatient (CLI) | payer OTHER ==
[2017-01-26 14:47] LABS: FOLATE 14.5 NG/ML; VITAMIN B12 LEVEL 503 PG/ML
[2017-01-26 14:53] LABS: TOTAL PROTEIN 7.2 GM/DL (6.4-8.2)
[2017-01-30 13:57] LABS: ALBUMIN 4.45 GM/DL (3.29-5.55); ALBUMIN % 61.8 % (55.8-66.1); GAMMA GLOBULIN % 12.9 % (11.1-18.8)
[2017-02-01 00:07] LABS: SJOGREN'S ANTI SS-A <0.2 AI (0.0-0.9); SJOGREN'S ANTI SS-B <0.2 AI (0.0-0.9); VITAMIN E LEVEL 22.5 mg/L (6.5-21.5)
== END ==
LOC: M LABNEURO 11:15
PROVIDERS: ATTEND Psychiatry & Neurology Neurology
DX: G31.89 Other specified degenerative diseases of nervous system (principal); Z79.899 Other long term (current) drug therapy; Z79.82 Long term (current) use of aspirin